=== PATIENT | male | born 1955 | race Caucasian/White ===

== ENCOUNTER 2017-05-20 13:54 | Emergency (ER) | payer BC ==
[2017-05-20 14:03] VITALS: BP 152/98
--- NOTE | 2017-05-20 14:43 | UC ---
FLU HPI - HPI Summary HPI Summary: Pt presents with 1 week of sinus pain/pressure/congestion, fatigue, and sore throat. He says that he gets sinus infections every day and this feels the same. He has not taken anything OTC for his discomfort. Denies fever, chills, cough, SOB, chest pain, abdominal pain, n/v/d/c. - History of Current Complaint Chief Complaint: UCRespiratory Stated Complaint: sore THROAT, AND SINUS CONGESTION Time Seen by Provider: 05/20/17 14:24 Hx Obtained From: Patient Onset/Duration: Gradual Onset Severity Currently: Mild Severity Initially: Mild Pain Intensity: 4 Pain Scale Used: 0-10 Numeric - Allergy/Home Medications Allergies/Adverse Reactions: Allergies Allergy/AdvReac Type Severity Reaction Status Date / Time MS Ranitidine [From Zantac] Allergy Unknown Unknown Verified 05/20/17 14:04 Reaction Details Home Medications: Home Medications [place]-3 Fatty Acids/Fish Oil [Fish Oil 1,000 mg Capsule] 1 tab PO DAILY [History Confirmed 05/20/17] PMH/Surg Hx/FS Hx/Imm Hx Previously Healthy: Yes - Surgical History Surgical History: Yes Surgery Procedure, Year, and Place: RIGHT SH, RIGHT INDEX FINGER, 3 HERNIA REPAIR - Family History Known Family History: Positive: Hypertension - Social History Occupation: Employed Full-time Lives: With Family Alcohol Use: Occasionally Substance Use Type: None Smoking Status (MU): Never Smoked Tobacco Review of Systems Constitutional: Negative Skin: Negative Eyes: Negative ENT: Sore Throat, Nasal Discharge, Sinus Congestion, Sinus Pain/Tenderness Respiratory: Negative Cardiovascular: Negative Gastrointestinal: Negative Neurological: Negative Psychological: Negative All Other Systems Reviewed And Are Negative: Yes Physical Exam Triage Information Reviewed: Yes Appearance: Well-Appearing, No Pain Distress, Well-Nourished Vital Signs: Initial Vital Signs Temp 98.1 F 05/20/17 14:00 Pulse 69 05/20/17 14:00 Resp 18 05/20/17 14:00 BP 152/98 05/20/17 14:00 Pulse Ox 100 05/20/17 14:00 Vital Signs Reviewed: Yes Eyes: Positive: Conjunctiva Clear. Negative: Conjunctiva Inflamed, Discharge ENT: Positive: Hearing grossly normal, Pharynx normal, Nasal congestion, Nasal drainage, TMs normal, Sinus tenderness, Uvula midline. Negative: Pharyngeal erythema, TM bulging, TM dull, TM red, Tonsillar swelling, Tonsillar exudate, Hoarse voice Neck: Positive: Supple, Nontender, No Lymphadenopathy Respiratory: Positive: Chest non-tender, Lungs clear, Normal breath sounds, No respiratory distress, No accessory muscle use Cardiovascular: Positive: RRR, No Murmur, Pulses Normal Neurological: Positive: Alert Psychological: Positive: Age Appropriate Behavior Skin: Negative: rashes Flu Course/Dx - Course Course Of Treatment: Sinusitis - amoxicillin - Differential Dx/Diagnosis Provider Diagnoses: Sinusitis Discharge - Discharge Plan Condition: Stable Disposition: HOME Prescriptions: Amoxicillin PO (*) [Amoxicillin 500 MG CAP*] 500 mg PO Q12H #14 cap Patient Education Materials: Sinusitis (ED) Referrals: Mayco Fuentes MD [Primary Care Provider] - Additional Instructions: If you develop a fever, shortness of breath, chest pain, new or worsening symptoms - please call your PCP or go to the ED. Your blood pressure was high at todays visit. Please see your primary provider within 4 weeks for recheck and re-evaluation.
== END 2017-05-20 14:52 | disposition home or self-care (01) ==
LOC: UCEAST 13:54
DX: J32.9 Chronic sinusitis, unspecified (principal); Z88.8 Allergy status to other drugs, medicaments and biological substances
CPT/HCPCS: 87502; 99212; G0463

== ENCOUNTER 2017-06-05 09:51 | Emergency (ER) | payer BC ==
[2017-06-05 10:28] LABS: ABS Basophils 0 10^3/ul (0-0.2); ABS Eosinophils 0.2 10^3/ul (0-0.6); ABS Monocytes 0.5 10^3/ul (0-0.8); ABS Neutrophils 2.8 10^3/ul (1.5-7.7); ABS Nucleated RBC 0 10^3/ul; Eosinophil % 3.9 % (0-6); Hematocrit 46 % (42-52); Hemoglobin 15.7 g/dl (14.0-18.0); Lymphocyte % 35.7 % (25-47); Mean Corpuscular HGB Conc 34 g/dl (31-36); Mean Corpuscular Hemoglobin 31 pg (27-31); Mean Corpuscular Volume 90 fL (80-94); Mean Platelet Volume 8 um3 (7.4-10.4); Nucleated Red Blood Cells % 0.1; Platelet Count 197 10^3/ul (150-450); Red Blood Count 5.12 10^6/ul (4.0-5.4); Red Cell Distribution Width 14 % (10.5-15); White Blood Count 5.5 10^3/ul (3.5-10.8)
[2017-06-05 10:59] LABS: EGFR Non-African American 77.5 (>60)
--- NOTE | 2017-06-05 11:33 | RAD ---
Indication: Chest pain. 2 views of the chest including dual energy PA views demonstrates no mediastinal shift. Heart is of normal size and configuration. Lung dc are clear. IMPRESSION: No active cardiopulmonary disease is noted.
[2017-06-05 11:57] VITALS: BP 128/84
--- NOTE | 2017-06-05 12:05 | ED ---
Skinny Sanchez Thomas, scribed for Julio Chung MD on 06/05/17 at 1011 . HPI Chest Pain - HPI Summary HPI Summary: The patient is a 62 year old male complaining of chest pain on his left side and shortness of breath. Patient notes that the pain started in his upper back and then radiated to his anterior left-sided chest. The chest pain began a week and a half to two weeks ago and the patient describes the pain as a constant pressure. The patient is easily fatigued and notes episodes of shortness of breath. The patient denies edema. The patient has an enlarged prostate and does not take any medications. - History of Current Complaint Chief Complaint: EDChestPainROMI Hx Obtained From: Patient Onset/Duration: Started Weeks Ago, Still Present Timing: Constant Pain Intensity: 4 Pain Scale Used: 0-10 Numeric Chest Pain Location: Diffuse Chest Pain Radiates: Yes Chest Pain Radiates To:: Back Character: Pressure/Squeezing, Tightness Aggravating Factor(s): Nothing Alleviating Factor(s): Nothing Associated Signs and Symptoms: Positive: Chest Pain, Shortness of Breath. Negative: Edema - Allergy/Home Medications Allergies/Adverse Reactions: Allergies Allergy/AdvReac Type Severity Reaction Status Date / Time ranitidine Allergy Unknown Verified 06/05/17 10:34 Reaction Details Home Medications: Home Medications Aspirin EC Low Dose* [Ecotrin EC Low Dose 81 MG*] 162 mg PO DAILY PRN 06/05/17 [ History Confirmed 06/05/17] Glucosamine CAP (NF) 1,000 cap PO DAILY 06/05/17 [History Confirmed 06/05/17] Multivitamins/Minerals TAB* [Theragran/minerals TAB*] 1 tab PO DAILY 06/05/17 [ History Confirmed 06/05/17] [place]-3 Fatty Acids (Nf) [Fish Oil (NF)] 1,000 mg PO DAILY 06/05/17 [History Confirmed 06/05/17] Tamsulosin CAP* [Flomax CAP*] 0.4 mg PO DAILY 06/05/17 [History Confirmed ] PMH/Surg Hx/FS Hx/Imm Hx Endocrine/Hematology History: Denies: Hx Diabetes Cardiovascular History: Denies: Hx Hypertension, Hx Pacemaker/ICD Respiratory History: Denies: Hx Asthma Musculoskeletal History: Reports: Hx Arthritis - JOINTS Sensory History: Denies: Hx Contacts or Glasses, Hx Hearing Aid Opthamlomology History: Denies: Hx Contacts or Glasses Psychiatric History: Denies: Hx Panic Disorder - Surgical History Surgery Procedure, Year, and Place: RIGHT SH, RIGHT INDEX FINGER, 3 HERNIA REPAIR Hx Anesthesia Reactions: No Infectious Disease History: No Infectious Disease History: Denies: Traveled Outside the [place] in Last 30 Days - Family History Known Family History: Positive: Hypertension - Social History Alcohol Use: Occasionally Substance Use Type: Reports: None Smoking Status (MU): Never Smoked Tobacco Review of Systems Positive: Fatigue Positive: Chest Pain Positive: Shortness Of Breath Negative: Edema All Other Systems Reviewed And Are Negative: Yes Physical Exam - Summary Physical Exam Summary: Appearance: The patient is well-nourished in no acute distress and in no acute pain. Skin: The skin is warm and dry and skin color reflects adequate perfusion. HEENT: ~The head is normocephalic and atraumatic. The pupils are equal and reactive. The conjunctivae are clear and without drainage. ~Nares are patent and without drainage. ~Mouth reveals moist mucous membranes and the throat is without erythema and exudate. ~The external ears are intact. The ear canals are patent and without drainage. The tympanic membranes are intact. Neck: the neck is supple with full range of motion and non-tender. There are no carotid bruits. ~There is no neck vein distension. Respiratory: Chest is non-tender. ~Lungs are clear to auscultation and breath sounds are symmetrical and equal. Cardiovascular: Heart is regular rate and rhythm. ~There is no murmur or rub auscultated. ~~There is no peripheral edema and pulses are symmetrical and equal. Abdomen: The abdomen is soft and non-tender. ~There are normal bowel sounds heard in all four quadrants and there is no organomegaly palpated. Musculoskeletal: There is no back tenderness noted. ~Extremities are non-tender with full range of motion. ~There is good capillary refill. ~There is no peripheral edema or calf tenderness elicited. Neurological: Patient is alert and oriented to person, place and time. ~The patient has symmetrical motor strength in all four extremities. ~Cranial nerves are grossly intact. Deep tendon reflexes are symmetrical and equal in all four extremities. Psychiatric: The patient has an appropriate affect and does not exhibit any anxiety or depression. Triage Information Reviewed: Yes Vital Signs On Initial Exam: Initial Vitals Temp Pulse Resp BP Pulse Ox 97.6 F 88 16 169/97 97 06/05/17 09:52 06/05/17 09:52 06/05/17 09:52 06/05/17 09:52 06/05/17 09:52 Vital Signs Reviewed: Yes Diagnostics - Vital Signs Vital Signs Temp Pulse Resp BP Pulse Ox 06/05/17 09:52 97.6 F 88 16 169/97 97 - Laboratory Lab Results: Lab Results 06/05/17 06/05/17 06/05/17 Range/Units 10:15 10:15 10:15 WBC 5.5 (3.5-10.8) 10^3/ul RBC 5.12 (4.0-5.4) 10^6/ul Hgb 15.7 (14.0-18.0) g/dl Hct 46 (42-52) % MCV 90 (80-94) fL MCH 31 (27-31) pg MCHC 34 (31-36) g/dl RDW 14 (10.5-15) % Plt Count 197 (150-450) 10^3/ul MPV 8 (7.4-10.4) um3 Neut % (Auto) 51.1 (38-83) % Lymph % (Auto) 35.7 (25-47) % [place] % (Auto) 8.5 (1-9) % Eos % (Auto) 3.9 (0-6) % Baso % (Auto) 0.8 (0-2) % Absolute Neuts (auto) 2.8 (1.5-7.7) 10^3/ul Absolute Lymphs (auto) 2.0 (1.0-4.8) 10^3/ul Absolute Monos (auto) 0.5 (0-0.8) 10^3/ul Absolute Eos (auto) 0.2 (0-0.6) 10^3/ul Absolute Basos (auto) 0 (0-0.2) 10^3/ul Absolute Nucleated RBC 0 10^3/ul Nucleated RBC % 0.1 D-Dimer, Quantitative (Less Than 230) ng/mL Sodium 137 (133-145) mmol/L Potassium 3.8 (3.5-5.0) mmol/L Chloride 105 (101-111) mmol/L Carbon Dioxide 28 (22-32) mmol/L Anion Gap 4 (2-11) mmol/L BUN 16 (6-24) mg/dL Creatinine 0.98 (0.67-1.17) mg/dL Est GFR ( Amer) 99.7 (>60) Est GFR (Non-Af Amer) 77.5 (>60) BUN/Creatinine Ratio 16.3 (8-20) Glucose 82 (70-100) mg/dL Lactic Acid 1.2 (0.5-2.0) mmol/L Calcium 9.4 (8.6-10.3) mg/dL Total Bilirubin 0.70 (0.2-1.0) mg/dL AST 22 (13-39) U/L ALT 19 (7-52) U/L Alkaline Phosphatase 62 (34-104) U/L Troponin I 0.00 (<0.04) ng/mL Total Protein 7.4 (6.4-8.9) g/dL Albumin 4.3 (3.2-5.2) g/dL Globulin 3.1 (2-4) g/dL Albumin/Globulin Ratio 1.4 (1-3) 06/05/17 Range/Units 10:15 WBC (3.5-10.8) 10^3/ul RBC (4.0-5.4) 10^6/ul Hgb (14.0-18.0) g/dl Hct (42-52) % MCV (80-94) fL MCH (27-31) pg MCHC (31-36) g/dl RDW (10.5-15) % Plt Count (150-450) 10^3/ul MPV (7.4-10.4) um3 Neut % (Auto) (38-83) % Lymph % (Auto) (25-47) % [place] % (Auto) (1-9) % Eos % (Auto) (0-6) % Baso % (Auto) (0-2) % Absolute Neuts (auto) (1.5-7.7) 10^3/ul Absolute Lymphs (auto) (1.0-4.8) 10^3/ul Absolute Monos (auto) (0-0.8) 10^3/ul Absolute Eos (auto) (0-0.6) 10^3/ul Absolute Basos (auto) (0-0.2) 10^3/ul Absolute Nucleated RBC 10^3/ul Nucleated RBC % D-Dimer, Quantitative < 200 (Less Than 230) ng/mL Sodium (133-145) mmol/L Potassium (3.5-5.0) mmol/L Chloride (101-111) mmol/L Carbon Dioxide (22-32) mmol/L Anion Gap (2-11) mmol/L BUN (6-24) mg/dL Creatinine (0.67-1.17) mg/dL Est GFR ( Amer) (>60) Est GFR (Non-Af Amer) (>60) BUN/Creatinine Ratio (8-20) Glucose (70-100) mg/dL Lactic Acid (0.5-2.0) mmol/L Calcium (8.6-10.3) mg/dL Total Bilirubin (0.2-1.0) mg/dL AST (13-39) U/L ALT (7-52) U/L Alkaline Phosphatase (34-104) U/L Troponin I (<0.04) ng/mL Total Protein (6.4-8.9) g/dL Albumin (3.2-5.2) g/dL Globulin (2-4) g/dL Albumin/Globulin Ratio (1-3) Result Diagrams: 06/05/17 10:15 06/05/17 10:15 Lab Statement: Any lab studies that have been ordered have been reviewed, and results considered in the medical decision making process. - Radiology CXR Xray Interpretation: No Acute Changes - No active cardiopulmonary disease is noted. Dr. Chung has reviewed this report. Radiology Interpretation Completed By: Radiologist - EKG 0954 Cardiac Rate: NL EKG Rhythm: Sinus Rhythm - at 70 bpm EKG Interpretation: RBBB, unchanged from 06/23/15 Chest Pain Course/Dx - Course Course Of Treatment: Mr. Rushing presents with a left sided chest pressure that has been constantly present for at least two days. Ther are no exacerbating or relieving factors. He has felt SOB at times and is easily fatigued with exercise. His W/U here was negative and the source of his symptoms is still uncertain. I don't think he is in any danger but will need to F/U if symptoms continue. - Diagnoses Provider Diagnoses: Chest pain Discharge - Discharge Plan Condition: Stable Disposition: HOME Patient Education Materials: Chest Pain (ED) Referrals: Mayco Fuentes MD [Primary Care Provider] - 3 Days Additional Instructions: Follow up with your primary care physician in three days. Return to the emergency department for any new or worsening symptoms. The documentation as recorded by the Skinny wall Thomas accurately reflects the service I personally performed and the decisions made by me, Julio Chung MD.
== END 2017-06-05 11:56 | disposition home or self-care (01) ==
LOC: ED 09:51
DX: R07.89 Other chest pain (principal); Z88.8 Allergy status to other drugs, medicaments and biological substances
CPT/HCPCS: 36415; 71046; 80053; 83605; 84484; 85025; 85379; 93005; 99283

== ENCOUNTER 2017-09-23 12:05 | Emergency (ER) | payer BC ==
[2017-09-23 12:21] VITALS: BP 111/77
--- NOTE | 2017-09-23 12:46 | UC ---
General HPI - HPI Summary HPI Summary: Patient is a 62 year old gentleman , without any significant past medical history who present today with for past 3 days. No sick contacts . No skin rash. Denies any tick bite but feels similar to when he had rash . No recent illness. Denies any fever, chills, cough chest pain or shortness of breath . No diaphoresis. Denies any abdominal pain , nausea or vomiting , diarrhea or constipation. - History of Current Complaint Chief Complaint: UCGeneralIllness Stated Complaint: LOSS OF ENERGY Time Seen by Provider: 09/23/17 12:32 Hx Obtained From: Patient Onset/Duration: Sudden Onset Timing: Constant Onset Severity: Moderate Current Severity: Moderate Pain Intensity: 0 - Allergy/Home Medications Home Medications: Home Medications Acetaminophen [Tylenol] 650 mg PO Q6HR PRN 09/23/17 [History Confirmed 09/23/17] PMH/Surg Hx/FS Hx/Imm Hx Previously Healthy: Yes Other Endocrine History: negative Other Cardiovascular History: negative Other Respiratory History: negative GI/ History: Other - BPH Other GI/ History: negative Other Neurological History: negative Other Psychological History: negative Other Cancer History: negative - Surgical History Surgical History: Yes Surgery Procedure, Year, and Place: RIGHT SH, RIGHT INDEX FINGER, 3 HERNIA REPAIR - Family History Known Family History: Positive: Hypertension - Social History Alcohol Use: Occasionally Substance Use Type: None Smoking Status (MU): Never Smoked Tobacco Review of Systems Constitutional: Fatigue Skin: Negative Eyes: Negative ENT: Negative Respiratory: Negative Cardiovascular: Negative Gastrointestinal: Negative Genitourinary: Negative Motor: Negative Neurovascular: Negative Musculoskeletal: Negative Neurological: Headache Psychological: Negative Is Patient Immunocompromised?: No All Other Systems Reviewed And Are Negative: Yes Physical Exam Triage Information Reviewed: Yes Appearance: Well-Appearing, No Pain Distress Vital Signs: Initial Vital Signs Temp 98.3 F 09/23/17 12:15 Pulse 79 09/23/17 12:15 Resp 18 09/23/17 12:15 BP 111/77 09/23/17 12:15 Pulse Ox 98 09/23/17 12:15 Vital Signs Reviewed: Yes Eye Exam: Normal Eyes: Positive: Conjunctiva Clear ENT Exam: Normal ENT: Positive: Hearing grossly normal, Pharynx normal, TMs normal, Uvula midline. Negative: Pharyngeal erythema, Nasal congestion, Nasal drainage, Tonsillar swelling, Tonsillar exudate, Trismus, Muffled voice, Hoarse voice Neck exam: Normal Neck: Positive: Supple, Nontender, No Lymphadenopathy Respiratory Exam: Normal Respiratory: Positive: Chest non-tender, Lungs clear, Normal breath sounds, No respiratory distress. Negative: Crackles, Rhonchi, Stridor, Wheezing Cardiovascular Exam: Normal Cardiovascular: Positive: RRR, No Murmur, Pulses Normal Abdominal Exam: Normal Abdomen Description: Positive: Nontender, No Organomegaly, Soft Bowel Sounds: Positive: Present Musculoskeletal Exam: Normal Musculoskeletal: Positive: Strength Intact, ROM Intact, No Edema Neurological Exam: Normal Neurological: Positive: Alert Psychological Exam: Normal Psychological: Positive: Normal Response To Family, Age Appropriate Behavior Skin Exam: Normal Skin: Negative: rashes Diagnostics - EKG Cardiac Rate: NL Cardiac Rhythm: Sinus: Normal Ectopy: None ST Segment: Normal - RBBB in lead V5 and questionable ST depression in V4 Course/Dx - Course Course Of Treatment: During the visit today, we obtained blood work to rule out lyme disease. We also obtianed blood work - CBCD, CMP, vitamin D and TSH . EKG done showed some changes which were new from last one in may 2017. We discussed the findings and further plan to send him to ER to rule out NSTEMI. I called the Report to ER . His son is with him and will be driving him to ER. Patient expressed understanding . - Differential Dx - Multi-Symptom Differential Diagnoses: Metabolic Abnormality, Urinary Tract Infection Provider Diagnoses: Fatigue. NSTEMI Discharge - Sign-Out/Discharge Documenting (check all that apply): Discharge/Admit/Transfer - Discharge Plan Condition: Stable Disposition: TRANS HIGHER LVL OF CARE FAC Discharge Disposition Comment: Plan to send him to ER to rule out NSTEMI. Patient Education Materials: Fatigue (ED) Referrals: Mayco Fuentes MD [Primary Care Provider] - Additional Instructions: Plan to send you to ER to rule out any cardiac pathology , get blood work to rule to out any ischemia. Follow up with your primary care doctor in 2 days. Return to Urgent care / ER if symptoms get worse. - Billing Disposition and Condition Condition: STABLE Disposition: Trans Higher Lvl of Care Fac
[2017-09-24 13:38] LABS: Hematocrit 48 % (42-52); Hemoglobin 16.4 g/dl (14.0-18.0); Mean Corpuscular HGB Conc 34 g/dl (31-36); Mean Corpuscular Hemoglobin 31 pg (27-31); Mean Corpuscular Volume 90 fL (80-94); Mean Platelet Volume 9.1 um3 (7.4-10.4); Platelet Count 125 10^3/ul (150-450); Red Blood Count 5.39 10^6/ul (4.0-5.4); Red Cell Distribution Width 14 % (10.5-15); White Blood Count 3.5 10^3/ul (3.5-10.8)
[2017-09-24 14:04] LABS: EGFR Non-African American 80.3 (>60)
[2017-09-24 14:08] LABS: ABS Basophils 0.1 10^3/ul (0-0.2); ABS Eosinophils 0.3 10^3/ul (0-0.6); ABS Lymphocytes 0.9 10^3/ul (1.0-4.8); ABS Monocytes 0.5 10^3/ul (0-0.8); ABS Neutrophils 1.7 10^3/ul (1.5-7.7)
[2017-09-24 14:17] LABS: Monocytes % 5 % (0-7)
--- NOTE | 2017-09-24 20:29 | UC ---
- Progress Note Progress Note: 09/24/2017 CBC Low platelet count 125, WBC: WNL,CMP: WNL Pending Lyme serology. Pt was transfer to [facility] ER yesterday. Rx Doxycycline PO prophylactically. Please call back Pt and see how he is feeling and to f/u w/ his PCP for further management Madelyn Granados PA-C Discharge - Sign-Out/Discharge Documenting (check all that apply): Discharge/Admit/Transfer - Discharge Plan Condition: Stable Disposition: TRANS HIGHER LVL OF CARE FAC Patient Education Materials: Fatigue (ED) Referrals: Mayco Fuentes MD [Primary Care Provider] - Additional Instructions: Plan to send you to ER to rule out any cardiac pathology , get blood work to rule to out any ischemia. Follow up with your primary care doctor in 2 days. Return to Urgent care / ER if symptoms get worse. - Billing Disposition and Condition Condition: STABLE Disposition: Trans Higher Lvl of Care Fac
== END 2017-09-23 13:58 | disposition short-term general hospital (02) ==
LOC: UCEAST 12:05
DX: R53.83 Other fatigue (principal); I21.4 Non-ST elevation (NSTEMI) myocardial infarction; N40.0 Benign prostatic hyperplasia without lower urinary tract symptoms; Z82.49 Family history of ischemic heart disease and other diseases of the circulatory system
CPT/HCPCS: 36415; 80053; 82652; 84443; 85025; 85060; 86617; 86618; 93005; 99212; G0463

== ENCOUNTER 2017-09-23 14:33 | Emergency (ER) | payer BC ==
[2017-09-23 15:48] LABS: ABS Basophils 0 10^3/ul (0-0.2); ABS Eosinophils 0.3 10^3/ul (0-0.6); ABS Lymphocytes 1.1 10^3/ul (1.0-4.8); ABS Monocytes 0.5 10^3/ul (0-0.8); ABS Nucleated RBC 0 10^3/ul; Eosinophil % 8.5 % (0-6); Hematocrit 46 % (42-52); Hemoglobin 15.8 g/dl (14.0-18.0); Lymphocyte % 27.9 % (25-47); Mean Corpuscular HGB Conc 35 g/dl (31-36); Mean Corpuscular Hemoglobin 31 pg (27-31); Mean Corpuscular Volume 89 fL (80-94); Nucleated Red Blood Cells % 0.1; Platelet Count 122 10^3/ul (150-450); Red Blood Count 5.09 10^6/ul (4.0-5.4); Red Cell Distribution Width 14 % (10.5-15); White Blood Count 3.9 10^3/ul (3.5-10.8)
[2017-09-23 15:56] LABS: INR 1.1 (0.77-1.02)
[2017-09-23 16:04] LABS: EGFR Non-African American 79.4 (>60)
--- NOTE | 2017-09-23 16:25 | RAD ---
INDICATION: Weakness COMPARISON: Most recent comparison chest x-rays dated June 05, 2017 TECHNIQUE: Single AP portable view of the chest was obtained. FINDINGS: Image quality is compromised due to the relative inferiority of a portable chest x-ray. The heart and mediastinum exhibit normal size and contour. The lungs are grossly clear. There is no evidence of a large pleural effusion. Visualized bones are normal for the patient's age. IMPRESSION: No radiographic evidence for acute cardiopulmonary abnormality on this portable chest x-ray.
[2017-09-23] MEDS ORDERED: Iohexol 350* (CONTRAST) 500 ML MDV IV ONE (16:57)
[2017-09-23] MEDS ORDERED: LORazepam INJ* 2 MG/ML 1 ML VIAL IV PUSH ONE (17:08)
--- NOTE | 2017-09-23 17:52 | RAD ---
INDICATION: Elevated d-dimer. Fatigue. COMPARISON: Chest radiograph the same date. TECHNIQUE: Multidetector CT images were obtained from the lung apices to the upper abdomen with 82 mL Omnipaque 350 IV contrast. Pulmonary angiogram protocol. Multiplanar reformation including with maximum intensity projection. REPORT: Mild alveolar consolidation at the peripheral aspect of the anteromedial basal segment of the LEFT lower lobe. Negative for pleural effusion or pneumothorax. Negative for cardiomegaly, pericardial effusion, or thoracic lymphadenopathy. Normal diameter thoracic aorta with minimal atherosclerotic plaque. Negative for aortic dissection. No filling defects are identified from the main to the subsegmental pulmonary arteries to indicate presence of a pulmonary embolism. Unremarkable Limited images through the upper abdomen. Small splenule noted anterior to the dominant spleen. Negative for suspicious thoracic osseous lesions. IMPRESSION: 1. Negative for pulmonary embolism. 2. Mild alveolar consolidation at the peripheral aspect of the anteromedial basal segment of the LEFT lower lobe which may represent atelectasis or potentially a small inflammatory infiltrate.
[2017-09-23 18:00] LABS: Urine Appearance Clear; Urine Blood Negative (Negative); Urine Color Yellow; Urine Ketones Negative (Negative); Urine Protein Negative (Negative); Urine Specific Gravity 1.021 (1.010-1.030); Urine Urobilinogen Negative (Negative)
[2017-09-23 18:40] VITALS: BP 119/73
[2017-09-23] MEDS ORDERED: DOXYcycline CAP(*) 100 MG PO ONE (18:46)
--- NOTE | 2017-09-28 00:33 | ED ---
Lili Sanchez Emily, scribed for Anabell Peters MD on 09/23/17 at 1540 . Complex/Multi-Sys Presentation - HPI Summary HPI Summary: This patient is a 62 year old M referred to [facility] by convenient care accompanied by son with a chief complaint of fatigue that began on the night of 09/20/2017. The patient rates the pain 0/10 in severity. Symptoms aggravated by nothing. Symptoms alleviated by nothing. Patient reports chills. Patient denies sore throat, headache, and CP and shortness of breath. Patient reports that he has a history of Lyme disease intermittently x 24 years, treated at least 3 times with antibiotics, most recently a few years ago; he denies any memory of tick exposure. Patient reports his most recent antibiotic course for the Lyme disease was in 2011. Patient reports that he was seen at [facility] on 2017 and received a negative flu test but forgot to ask about possible Lyme disease. Pt went to urgent care today for further eval of poss Lyme disease but was noted with EKG changes since May 2017, so was referred to the ED for further evaluation. Pt states he did not seek further evaluation with Dr. Fuentes after ED visit in May 2017 for chest pain, SOB. Pt states he has not had a stress test for more than 6 years. States he has no HTN, no DM, no hypercholesterolemia, no hx smoking and neg fam hx for CAD. - History Of Current Complaint Chief Complaint: EDWeakness Time Seen by Provider: 09/23/17 15:26 Hx Obtained From: Patient, Medical Records - record, and Dr. Rodriges Onset/Duration: Sudden Onset, Lasting Days, Still Present Timing: Constant Severity Currently: Mild Severity Initially: Mild Location: Negative Aggravating Factor(s): Nothing Alleviating Factor(s): Nothing Associated Signs And Symptoms: Positive: Other - Positive chills and fatigue . Negative sore throat, chills, and CP and SOB Related History: Similar Episode/Diagnosed As: - Lyme disease - Allergies/Home Medications Allergies/Adverse Reactions: Allergies Allergy/AdvReac Type Severity Reaction Status Date / Time No Known Allergies Allergy Verified 09/23/17 14:36 PMH/Surg Hx/FS Hx/Imm Hx Previously Healthy: No Endocrine/Hematology History: Reports: Other Endocrine/Hematological Disorders - Lyme disease Denies: Hx Diabetes Cardiovascular History: Denies: Hx Hypercholesterolemia, Hx Hypertension, Hx Pacemaker/ICD Respiratory History: Denies: Hx Asthma Musculoskeletal History: Reports: Hx Arthritis Sensory History: Denies: Hx Contacts or Glasses, Hx Hearing Aid Opthamlomology History: Denies: Hx Contacts or Glasses Psychiatric History: Denies: Hx Panic Disorder - Surgical History Surgery Procedure, Year, and Place: RIGHT INDEX FINGER, 3 HERNIA REPAIRS Hx Anesthesia Reactions: No Infectious Disease History: Yes Infectious Disease History: Reports: History Other Infectious Disease - Lyme disease Denies: Traveled Outside the [place] in Last 30 Days - Family History Known Family History: Positive: Hypertension, Other - CA - father. Dementia - mother Negative: Cardiac Disease - Social History Occupation: Retired Lives: With Family Alcohol Use: Occasionally Hx Substance Use: No Substance Use Type: Reports: None Hx Tobacco Use: No Smoking Status (MU): Never Smoked Tobacco Review of Systems Positive: Chills, Fatigue Negative: Sore Throat Negative: Chest Pain Negative: Shortness Of Breath Gastrointestinal: Negative Genitourinary: Negative Musculoskeletal: Negative Skin: Negative Negative: Headache Psychological: Normal All Other Systems Reviewed And Are Negative: Yes Physical Exam - Summary Physical Exam Summary: Appearance: Well-appearing, no pain distress, well-nourished, O2 sat 93% on room air Skin: Warm, color reflects adequate perfusion, dry, no rash Head: Normal Head/Face inspection, atraumatic Eyes: Conjunctiva clear ENT: Normal inspection Neck: Supple, no nodes, no JVD Respiratory: Lungs clear, normal breath sounds, no respiratory distress Cardio: RRR, No murmur, pulses normal, brisk capillary refill Abdomen: Soft, nontender, no hepatosplenomegaly Bowel sounds: Present Musculoskeletal: Strength Intact/ROM intact, no calf tenderness, no edema. Psychological: Normal Neuro: Alert, muscle tone normal, no focal deficit Triage Information Reviewed: Yes Vital Signs On Initial Exam: Initial Vitals Temp Pulse Resp BP Pulse Ox 97 F 74 16 123/84 96 09/23/17 14:37 09/23/17 14:37 09/23/17 14:37 09/23/17 14:37 09/23/17 14:37 Vital Signs Reviewed: Yes Diagnostics - Vital Signs Vital Signs Temp Pulse Resp BP Pulse Ox 09/23/17 14:37 97 F 74 16 123/84 96 - Laboratory Lab Results: Lab Results 09/23/17 09/23/17 09/23/17 Range/Units 15:38 15:38 15:38 WBC 3.9 (3.5-10.8) 10^3/ul RBC 5.09 (4.0-5.4) 10^6/ul Hgb 15.8 (14.0-18.0) g/dl Hct 46 (42-52) % MCV 89 (80-94) fL MCH 31 (27-31) pg MCHC 35 (31-36) g/dl RDW 14 (10.5-15) % Plt Count 122 L (150-450) 10^3/ul MPV 8.0 (7.4-10.4) um3 Neut % (Auto) 50.8 (38-83) % Lymph % (Auto) 27.9 (25-47) % Towns % (Auto) 11.8 H (0-7) % Eos % (Auto) 8.5 H (0-6) % Baso % (Auto) 1.0 (0-2) % Absolute Neuts (auto) 2.0 (1.5-7.7) 10^3/ul Absolute Lymphs (auto) 1.1 (1.0-4.8) 10^3/ul Absolute Monos (auto) 0.5 (0-0.8) 10^3/ul Absolute Eos (auto) 0.3 (0-0.6) 10^3/ul Absolute Basos (auto) 0 (0-0.2) 10^3/ul Absolute Nucleated RBC 0 10^3/ul Nucleated RBC % 0.1 INR (Anticoag Therapy) 1.10 H (0.77-1.02) APTT 28.2 (26.0-36.3) seconds D-Dimer, Quantitative 643 H (Less Than 230) ng/mL Sodium 138 L (139-145) mmol/L Potassium 3.9 (3.5-5.0) mmol/L Chloride 104 (101-111) mmol/L Carbon Dioxide 27 (22-32) mmol/L Anion Gap 7 (2-11) mmol/L BUN 17 (6-24) mg/dL Creatinine 0.96 (0.67-1.17) mg/dL Est GFR ( Amer) 102.1 (>60) Est GFR (Non-Af Amer) 79.4 (>60) BUN/Creatinine Ratio 17.7 (8-20) Glucose 102 H (70-100) mg/dL Lactic Acid (0.5-2.0) mmol/L Calcium 8.8 (8.6-10.3) mg/dL Magnesium 2.1 (1.9-2.7) mg/dL Total Bilirubin 0.60 (0.2-1.0) mg/dL AST 35 (13-39) U/L ALT 31 (7-52) U/L Alkaline Phosphatase 74 (34-104) U/L Total Creatine Kinase 90 (10-223) U/L CK-MB (CK-2) 2.4 (0.6-6.3) ng/mL Troponin I 0.00 (<0.04) ng/mL B-Natriuretic Peptide ( - 100) pg/mL Total Protein 6.8 (6.4-8.9) g/dL Albumin 3.8 (3.2-5.2) g/dL Globulin 3.0 (2-4) g/dL Albumin/Globulin Ratio 1.3 (1-3) TSH 3.24 (0.34-5.60) mcIU/mL Thyroxine (T4) 8.15 (6.09-12.23) mcg/mL 09/23/17 09/23/17 Range/Units 15:38 15:38 WBC (3.5-10.8) 10^3/ul RBC (4.0-5.4) 10^6/ul Hgb (14.0-18.0) g/dl Hct (42-52) % MCV (80-94) fL MCH (27-31) pg MCHC (31-36) g/dl RDW (10.5-15) % Plt Count (150-450) 10^3/ul MPV (7.4-10.4) um3 Neut % (Auto) (38-83) % Lymph % (Auto) (25-47) % Towns % (Auto) (0-7) % Eos % (Auto) (0-6) % Baso % (Auto) (0-2) % Absolute Neuts (auto) (1.5-7.7) 10^3/ul Absolute Lymphs (auto) (1.0-4.8) 10^3/ul Absolute Monos (auto) (0-0.8) 10^3/ul Absolute Eos (auto) (0-0.6) 10^3/ul Absolute Basos (auto) (0-0.2) 10^3/ul Absolute Nucleated RBC 10^3/ul Nucleated RBC % INR (Anticoag Therapy) (0.77-1.02) APTT (26.0-36.3) seconds D-Dimer, Quantitative (Less Than 230) ng/mL Sodium (139-145) mmol/L Potassium (3.5-5.0) mmol/L Chloride (101-111) mmol/L Carbon Dioxide (22-32) mmol/L Anion Gap (2-11) mmol/L BUN (6-24) mg/dL Creatinine (0.67-1.17) mg/dL Est GFR ( Amer) (>60) Est GFR (Non-Af Amer) (>60) BUN/Creatinine Ratio (8-20) Glucose (70-100) mg/dL Lactic Acid 0.7 (0.5-2.0) mmol/L Calcium (8.6-10.3) mg/dL Magnesium (1.9-2.7) mg/dL Total Bilirubin (0.2-1.0) mg/dL AST (13-39) U/L ALT (7-52) U/L Alkaline Phosphatase (34-104) U/L Total Creatine Kinase (10-223) U/L CK-MB (CK-2) (0.6-6.3) ng/mL Troponin I (<0.04) ng/mL B-Natriuretic Peptide 18 ( - 100) pg/mL Total Protein (6.4-8.9) g/dL Albumin (3.2-5.2) g/dL Globulin (2-4) g/dL Albumin/Globulin Ratio (1-3) TSH (0.34-5.60) mcIU/mL Thyroxine (T4) (6.09-12.23) mcg/mL Result Diagrams: 09/23/17 15:38 09/23/17 15:38 Lab Statement: Any lab studies that have been ordered have been reviewed, and results considered in the medical decision making process. - Radiology CXR Radiology Interpretation Completed By: Radiologist - CXR reveals, per radiologist, no radiographic evidence for acute cardiopulmonary abnormality on this portable chest x-ray. ED physician has reviewed this radiology report. - CT CTA Chest CT Interpretation Completed By: Radiologist - CTA chest reveals, per radiologist , 1. Negative for pulmonary embolism. 2. Mild alveolar consolidation at the peripheral aspect of the anteromedial basal segment of the LEFT lower lobe which may represent atelectasis or potentially a small inflammatory infiltrate. ED physician has reviewed this radiology report. - EKG 1529 Cardiac Rate: NL EKG Rhythm: Sinus Rhythm - [address] Segment: Non-Specific Ectopy: None EKG Interpretation: Nl AVCT Prolonged IVCT in RBBB Prolonged QTc(507) Elk-31. No acute changes EKG Comparison: Other - Some changes compared with EKG taken on 06/05/2017. But RBBB is not new Re-Evaluation - Re-Evaluation First Eval Re-Evaluation Time: 16:53 Change: Unchanged Comment: Discussed the elevated d-dimer result with the patient. The patient reports that he frequently drives to [place], most recently was one month ago. The patient denies any CP upon deep breaths. The patient reports that gets short of breath upon climbing stairs (not acute). At this time the patient has an O2 sat of 93 with a good waveform and he is a nonsmoker. Second Eval Re-Evaluation Time: 18:22 Change: Unchanged Comment: Discussed CT results and plan of care with the patient. O2 sat is still 93 Complex Multi-Symp Course/Dx Course Of Treatment: This patient is a 62 year old M referred to [facility] by convenient care accompanied by son with a chief complaint of fatigue that began on the night of 09/20/2017. Pt was referred for poss ACS cause of his fatigue and nonspecific EKG changes since 06/05/17. CXR reveals, per radiologist, no radiographic evidence for acute cardiopulmonary abnormality on this portable chest x-ray. CTA was done due to fatigue, dyspnea on exertion and O2 sat only 93 % at rest in nonsmoker, and elevated d dimer. CTA chest reveals, per radiologist , 1. Negative for pulmonary embolism. 2. Mild alveolar consolidation at the peripheral aspect of the anteromedial basal segment of the LEFT lower lobe which may represent atelectasis or potentially a small inflammatory infiltrate. Bloodwork and UA obtained. The patient will be discharged with a prescription for Doxycycline for the infiltrate seen on CT and possible Lyme disease, as well as advised to follow up with his PCP, Dr. Fuentes. The patient is agreeable with this plan. - Diagnoses Differential Diagnoses/HQI/PQRI: Cardiac Ischemia, Metabolic Abnormality, Sepsis , Other - PE Provider Diagnoses: Fatigue, Thrombocytopenia, Elevated d-dimer, Lyme disease, Atelectasis of left lung, Pulmonary infiltrate present on computed tomography Discharge - Sign-Out/Discharge Documenting (check all that apply): Discharge/Admit/Transfer - Discharge home - Discharge Plan Condition: Stable Disposition: HOME Prescriptions: DOXYcycline CAP(*) [DOXYcycline 100MG CAP(*)] 100 mg PO BID #42 cap Patient Education Materials: Lyme Disease (ED), Atelectasis (ED) Referrals: Mayco Fuentes MD [Primary Care Provider] - 2 Days Additional Instructions: We have given you a copy of all of your tests including your CTA chest and CXR. Dr. Peters is prescribing the doxycycline 100mg twice a day for 3 weeks which would treat Lyme disease if that is the cause of your symptoms. It would also treat the infiltrate that is noted on chest CTA if that infiltrate is pneumonia. You need definite follow up with Dr. Fuentes this week, for further evaluation of your fatigue, shortness of breath with exertion and the CTA chest finding. Return to the ER if you have any new or worsening symptoms. - Billing Disposition and Condition Condition: STABLE Disposition: Home The documentation as recorded by the Lili wall Emily accurately reflects the service I personally performed and the decisions made by , Anabell Peters MD.
== END 2017-09-23 19:02 | disposition home or self-care (01) ==
LOC: ED 14:33
DX: R53.83 Other fatigue (principal); D69.6 Thrombocytopenia, unspecified; R79.1 Abnormal coagulation profile; A69.20 Lyme disease, unspecified; J98.11 Atelectasis; R91.8 Other nonspecific abnormal finding of lung field; I45.10 Unspecified right bundle-branch block; Z86.19 Personal history of other infectious and parasitic diseases
CPT/HCPCS: 36415; 71045; 71275; 80053; 81003; 82550; 82553; 82652; 83605; 83735; 83880; 84436; 84443; 84484; 85025; 85379; 85610; 85730; 86617; 86618; 93005; 96374; 99283; A9270-GY; J2060; Q9967

== ENCOUNTER 2019-03-24 12:16 | Emergency (ER) | payer BC ==
--- OUTSIDE RECORDS SUMMARY | 2019-03-24 12:20 | XMS REPORT | Summary of Care ---
:1955 Author Organization [facility] Address [address] [address] Care Team Providers Name Role Phone Mayco Fuentes MD Primary Care Provider Reason for Visit Reason Comments New Patient Left big toe. DOI: 25+ yrs. Patient here looking for options for pain relief and he has a few other things he like to talk to about. Encounter Details Date Type Department Care Team Description 03/20/2019 Office Visit [facility] - Jose Rahman MD Left shoulder pain, unspecified chronicity (Primary Dx); [place] [address] Left foot pain; [address] Hallux rigidus, [place] [address] [place] [address] [place] [address] [phone] Allergies No Known Allergiesdocumented as of this encounter (statuses as of 03/20/2019) Medications Medication Sig Dispensed Refills Start Date End Date Status Tamsulosin HCl (FLOMAX) Take 0.4 mg by 0 Active 0.4 MG Oral Cap mouth DAILY. [place]-3 Fatty Acids Take by mouth. 0 Active (FISH OIL) 1000 MG Oral Cap Svttysscksm-Iyocttiiq-K Take by mouth. 0 Active it C-Mn (GLUCOSAMINE 1500 COMPLEX PO) Multiple Take by mouth. 0 Active Vitamins-Minerals (MULTIVITAMIN ADULT) Oral Tab documented as of this encounter (statuses as of 03/20/2019) Active Problems Problem Noted Date Spinal stenosis of lumbar region with radiculopathy 09/17/2018 Upper back pain on right side 08/06/2018 Radicular low back pain 07/24/2018 Overview: Added automatically from request for surgery [id number] Spondylosis without myelopathy or radiculopathy, lumbar region 06/19/2018 Cervical spondylosis without myelopathy 06/19/2018 documented as of this encounter (statuses as of 03/20/2019) Social History Tobacco Use Types Packs/Day Years Used Date Never Smoker Smokeless Tobacco: Never Used Alcohol Use Drinks/Week oz/Week Comments Yes Alcohol Habits Answer Date Recorded How often do you have a drink containing 4 or more times a week 06/19/2018 alcohol? How many drinks containing alcohol do you have 1 or 2 06/19/2018 on a typical day when you are drinking? How often do you have six or more drinks on one Not asked occasion? Sex Assigned at Date Recorded Not on file Job Start Date Occupation Industry Not on file Not on file Not on file Travel History Travel Start Travel End No recent travel history available. documented as of this encounter Last Filed Vital Signs Vital Sign Reading Time Taken Comments Blood Pressure 123/80 03/20/2019 2:31 PM EST Pulse 93 03/20/2019 2:31 PM EST Temperature - - Respiratory Rate - - Oxygen Saturation - - Inhaled Oxygen Concentration - - Weight 97.5 kg (215 lb) 03/20/2019 2:31 PM EST Height 177.8 cm (5' 10") 03/20/2019 2:31 PM EST Body Mass Index 30.85 03/20/2019 2:31 PM EST documented in this encounter Progress Notes Jose Rahman MD - 03/20/2019 2:30 PM EST Name: Chaitanya Rushing : 1955 Date of Service: 03/20/2019 Chief Complaint Patient presents with New Patient Left big toe. DOI: 25+ yrs. Patient here looking for options for pain relief and he has a few other things he like to talk to about. 64-year-old active man presents with 2 orthopedic problems which are both chronic. The first is left great toe MTP joint pain. Has had numerous objects fall on the great toe over the years but no other active injury. Second orthopedic problem is chronic left shoulder pain. No known injury in the past. Patient complains of stiffness and pain particularly on adduction. No particular pain on overhead motion. Physical exam shows a healthy-appearing man in no acute distress. Alert and oriented. Left great toe shows mild deformity and prominent bunion. MTP pain on dorsiflexion. Range of motion significantly decreased. Skin is normal. No significant swelling. No redness. Left shoulder appears grossly normal. No redness or swelling. Pain on adduction. Tender left AC joint. Full range of motion without pain otherwise. Negative impingement sign. Negative apprehension sign. Grossly neurovascular status left upper extremity intact. X-rays of the great toe show hallux rigidus with advanced degenerative changes and joint space narrowing at the great toe MTP. X-ray of the shoulder show AC arthritis. Recommendations: Carbon graphite insert. If no help, return to discuss possible surgery. For shoulder I advised patient to experiment with changing his weightlifting routine. If no help, consider physical therapy. No diagnosis found. Author: Jose Rahman MD 03/20/2019 14:40 This record contains sections created with voice recognition software. It has been electronically signed. A reasonable attempt at proofreading has been made. Please call with any questions or corrections. documented in this encounter Plan of Treatment Name Type Priority Associated Diagnoses Date/Time XR SHOULDER MIN 2 Imaging Routine Left shoulder pain, 03/20/2019 2:56 PM VIEWS LEFT (STANDARD) unspecified chronicity EST Name Type Priority Associated Diagnoses Order Schedule XR SHOULDER MIN 2 Imaging Routine Left shoulder pain, Expected: 03/20/2019, VIEWS LEFT (STANDARD) unspecified chronicity Expires: 03/19/2020 Health Maintenance Due Date Last Done Comments HIV SCREENING 1970 DIABETES SCREENING 1973 LIPID DISORDER SCREENING 1973 HEPATITIS C SCREENING 1995 Colonoscopy 2005 ZOSTER IMMUNIZATION SERIES (1 of 2005 2) INFLUENZA VACCINE (#1) 2018 DEPRESSION SCREENING 07/25/2019 07/24/2018 HPV IMMUNIZATION SERIES Aged Out No longer eligible based on patient's age to complete this topic MENINGOCOCCAL VACCINE IMM Aged Out No longer eligible based on patient's age to complete this topic PNEUMOCOCCAL 0-64 YRS Aged Out No longer eligible based on patient's age to complete this topic documented as of this encounter Results Not on filedocumented in this encounter Visit Diagnoses Diagnosis Left shoulder pain, unspecified chronicity - Primary Left foot pain Pain in limb Hallux rigidus, left foot documented in this encounter Insurance Payer Benefit Plan / Subscriber ID Effective Dates Phone Address Type Group GORGE CADENA xxxxxxxxxxxx 2013-Present Gorge documented as of this encounter
[2019-03-24 12:45] VITALS: BP 134/85
--- NOTE | 2019-03-24 13:16 | UC ---
Eye Complaint HPI - HPI Summary HPI Summary: 64yo man with 4 days of purulent eye draiange: awoke with his lids stuck shut, without photophobia, but persistent discharge. Had contact about 5 days prior with his daughter who has had bilateral conjunctivitis which has been slow to respond to treatment. Started polytrim drops 2 days ago without impovement. No headache, photophobia or hx of eye disease. Does not wear contact lenses. - History of Current Complaint Chief Complaint: UCEye Stated Complaint: EYE PROBLEM Time Seen by Provider: 03/24/19 13:05 Hx Obtained From: Patient Onset/Duration: Gradual Onset, Lasting Days - 4 Pain Intensity: 3 Location of Injury: Conjunctiva Aggravating Factor(s): Nothing Alleviating Factor(s): Nothing Associated Signs And Symptoms: Positive: Drainage (Purulent). Negative: Photophobia - Risk Factors Penetrating Injury Risk Factor: Negative Globe Rupture Risk Factors: Negative Acute Glaucoma Risk Factors: Negative Optic Artery Occlusion Risk Factors: Negative - Allergies/Home Medications Allergies/Adverse Reactions: Allergies Allergy/AdvReac Type Severity Reaction Status Date / Time No Known Allergies Allergy Verified 03/24/19 12:45 PMH/Surg Hx/FS Hx/Imm Hx Previously Healthy: Yes GI/ History: Other - BPH - Surgical History Surgical History: Yes Surgery Procedure, Year, and Place: RIGHT INDEX FINGER, 3 HERNIA REPAIRS. right shoulder. right thumb a - Family History Known Family History: Positive: Hypertension, Other - CA - father. Dementia - mother Negative: Cardiac Disease - Social History Occupation: Retired Alcohol Use: Daily Substance Use Type: None Smoking Status (MU): Never Smoked Tobacco Review of Systems All Other Systems Reviewed And Are Negative: Yes Constitutional: Positive: Negative Skin: Positive: Negative Eyes: Positive: Blurred Vision, Drainage, Eye Redness. Negative: Diplopia, Photophobia ENT: Positive: Sore Throat - mild Respiratory: Positive: Negative Cardiovascular: Positive: Negative Gastrointestinal: Positive: Negative Genitourinary: Positive: Negative Motor: Positive: Negative Neurovascular: Positive: Negative Musculoskeletal: Positive: Negative Neurological: Positive: Negative Psychological: Positive: Negative Is Patient Immunocompromised?: No Physical Exam Triage Information Reviewed: Yes Appearance: Well-Appearing, No Pain Distress Vital Signs: Initial Vital Signs Temp 98.7 F 03/24/19 12:39 Pulse 69 03/24/19 12:39 Resp 18 03/24/19 12:39 BP 134/85 03/24/19 12:39 Pulse Ox 97 03/24/19 12:39 Eye Exam: Other - FRANCISCO without photophobia, no lid swelling. Eyes: Positive: Conjunctiva Inflamed - left eye injected wihh mild purulent drainage. Culture collected., Other: - No aakash-orbital swelling. ENT: Positive: Pharynx normal, TMs normal Dental Exam: Normal Neck: Positive: Supple, Nontender, No Lymphadenopathy Respiratory: Positive: Lungs clear, Normal breath sounds Cardiovascular: Positive: RRR, No Murmur Musculoskeletal Exam: Normal Neurological Exam: Normal Psychological Exam: Normal Skin Exam: Normal Eye Complaint Course/Dx - Course Course Of Treatment: Stop Polytrim drops, change to cipro. Follow up with Dr. Muhammad if not responding to drops in 1-2 days. - Differential Dx/Diagnosis Differential Diagnosis/HQI/PQRI: Conjunctivitis, Corneal Abrasion, Periorbital Cellulitis, Uveitis Provider Diagnosis: Conjunctivitis, left eye Discharge ED - Sign-Out/Discharge Documenting (check all that apply): Patient Departure All imaging exams completed and their final reports reviewed: No Studies - Discharge Plan Condition: Stable Disposition: HOME Prescriptions: Ciprofloxacin 0.3% OPTH.PATTI* [Cipro 0.3% Opth*] 2 drop LEFT EYE Q4H #1 btl Patient Education Materials: Conjunctivitis (ED) Referrals: Mayco Fuentes MD [Primary Care Provider] - Ze Muhammad MD [Medical Doctor] - Additional Instructions: Compress the eye with warm compresses followed by insertion of the drops to the left eye every 2 hours today. If you have continued eye discharge and inflammation,, please call Dr muhammad' s office to arrange a follow up check. - Billing Disposition and Condition Condition: STABLE Disposition: Home
== END 2019-03-24 13:36 | disposition home or self-care (01) ==
LOC: UCEAST 12:16
DX: H10.9 Unspecified conjunctivitis (principal)
CPT/HCPCS: 87070; 87205; 99212; G0463